=== PATIENT | male | born 1940 | race Caucasian/White ===

== ENCOUNTER 2019-08-07 09:45 | Outpatient (CLI) | payer OTHER, SELFPAY ==
--- NOTE | ~2019-08-07 | PE_ITS ---
EXAMINATION: PET skull to mid thigh DATE: 08/07/2019 11:52 INDICATION: Prostate cancer TECHNIQUE: 7.8 mCi of 18-fluorodeoxyglucose (18-FDG) was administered i.v. Low dose computed tomograp hy (CT) images were acquired from the base of the brain to the proximal thighs for attenuation correc tion and anatomic localization. Positron emission tomography (PET) images were acquired after injecti on. Images including fused PET/CT images were reconstructed in axial, coronal, and sagittal planes. A utomatic exposure control is employed as a dose reduction technique. COMPARISON: CT dated 03/05/2019 and PET/CT dated 01/02/2019 FINDINGS: Head/neck: No hypermetabolic activity is identified in the neck. Chest: No thoracic lymphadenopathy. No significant pleural or pericardial effusion. Heart size normal. There are mild emphysematous changes. Evaluation for small pulmonary nodules limited by motion artifact. N o hypermetabolic activity is identified. No focal airspace consolidation. Enlarged central pulmonary arteries, consistent with pulmonary arterial hypertension. Abdomen/pelvis/proximal thighs: The liver, spleen, pancreas, adrenal glands are unremarkable. There is an exophytic 2.1 cm right kate l cyst anteriorly. No hydronephrosis or renal stones. Gallbladder not identified, likely surgically a bsent. There is mild retroperitoneal lymphadenopathy without significant change. No associated hyperm etabolic activity. Tiny fat-containing umbilical hernia. No bowel obstruction. Enlarged prostate glan d. Bones/Soft tissues: There multiple sclerotic lesions of the pelvis, sternum there is a single focus of hypermetabolic act ivity in the right ilium lateral to the sacroiliac joint. As well as the cervical, thoracic and lumba r spine IMPRESSION: 1. Solitary focus of increased FDG uptake in the right ilium lateral to the sacroiliac joint, consist ent with metastatic disease. Multiple additional sclerotic metastases are identified in the spine, pe lvis and sternum without associated FDG uptake, likely treated metastases. 2: No additional sites of hypermetabolic activity are identified in the neck, chest, abdomen or pelvi s. Reviewed, dictated and finalized at location A. IMPRESSION: 1. Solitary focus of increased FDG uptake in the right ilium lateral to the sac roiliac joint, consistent with metastatic disease. Multiple additional scleroti c metastases are identified in the spine, pelvis and sternum without associated FDG uptake, likely treated metastases. 2: No additional sites of hypermetabolic activity are identified in the neck, c hest, abdomen or pelvis.
[2019-08-07 10:07] LABS: Glucose Point of Care 108 (65-105)
== END 2019-08-07 09:46 | disposition home or self-care (01) ==
PROVIDERS: PCP Internal Medicine; Visit Provider Internal Medicine Medical Oncology
DX: C61 Malignant neoplasm of prostate (principal)
CPT/HCPCS: 78815; A9552

== ENCOUNTER 2020-01-11 13:37 | Outpatient (CLI) | payer OTHER, SELFPAY ==
--- NOTE | ~2020-01-11 | CT_ITS ---
EXAMINATION: CT chest abdomen pelvis w con DATE: 01/11/2020 16:14 CDT INDICATION: Prostate cancer. Bone metastases. TECHNIQUE: Computed tomography (CT) of the chest, abdomen, and pelvis was performed with 100 cc Omnip aque 350 intravenous contrast. The dose-length product was 997.74 mGy-cm. Automated exposure control and iterative reconstruction technique were employed. COMPARISON: Pet/CT dated 08/07/[address] dated 03/05/2019 FINDINGS: CHEST CT: Improvement of mediastinal lymphadenopathy. No significant pleural or pericardial effusion. Heart siz e normal. There is atherosclerosis of the aorta and coronary arteries. Stable 3 mm nodule right upper lobe, coronal image 40. There is a 4 mm perifissural nodule left upper lobe without change. ABDOMEN/PELVIS CT: The liver, spleen, pancreas, adrenal glands and kidneys are unremarkable. There is bladder wall thick ening with multiple bladder diverticula. Enlarged prostate gland. Exophytic right renal cyst. No sign ificant lymphadenopathy. There are multiple scattered sclerotic lesions throughout the visualized oss eous structures with progression of sclerosis in T12. IMPRESSION: 1. Progression of sclerosis in T12, compatible with metastatic disease. Numerable sclerotic lesions a re present throughout the remainder of the visualized osseous structures, compatible with treated met astases. 2: Enlarged prostate gland. Diffuse irregular bladder wall thickening with multiple diverticula, unc hanged. Reviewed, dictated and finalized at location A. IMPRESSION: 1. Progression of sclerosis in T12, compatible with metastatic disease. Numerab le sclerotic lesions are present throughout the remainder of the visualized oss eous structures, compatible with treated metastases. 2: Enlarged prostate gland. Diffuse irregular bladder wall thickening with mul tiple diverticula, unchanged.
== END 2020-01-11 13:38 | disposition home or self-care (01) ==
PROVIDERS: PCP Internal Medicine; Visit Provider Internal Medicine Medical Oncology
DX: C61 Malignant neoplasm of prostate (principal); R07.9 Chest pain, unspecified
CPT/HCPCS: 71260; 74177; Q9967

== ENCOUNTER 2020-03-12 13:51 | Outpatient (CLI) | payer OTHER, SELFPAY ==
--- NOTE | ~2020-03-12 | XR_ITS ---
XR ribs RT 2V w CXR 2V DATE: 03/12/2020 14:15 INDICATION: Right lower rib pain for one month. No injury. History of prostate cancer. TECHNIQUE: PA and lateral chest. 3 views of the right ribs. COMPARISON: 01/11/2020 CT chest abdomen pelvis FINDINGS: Extensive atherosclerotic metastatic disease is better demonstrated on 01/11/2020 CT chest a bdomen pelvis examination. No right rib fracture is evident. Osteosclerotic lesions of the thoracic spine are noted, best demonstrated at T4 and T12, but better d emonstrated by far on the 01/11/2020 CT examination. Normal heart size. No hilar or mediastinal enlargement. Aortic calcification. No pulmonary infiltrate or consolidation, pleural effusion or pulmonary vascular congestion or pneumo thorax is detected. IMPRESSION: Extensive prostate osteosclerotic metastatic disease Reviewed, dictated and finalized at location A.
== END 2020-03-12 13:52 | disposition home or self-care (01) ==
PROVIDERS: PCP Internal Medicine; Visit Provider Internal Medicine Medical Oncology
DX: R07.81 Pleurodynia (principal); R91.8 Other nonspecific abnormal finding of lung field
CPT/HCPCS: 71046; 71100

== ENCOUNTER 2020-07-21 07:43 | Outpatient (CLI) | payer OTHER, SELFPAY ==
--- NOTE | ~2020-07-21 | CT_ITS ---
EXAMINATION: CT soft tissue neck w con DATE: 07/21/2020 08:26 INDICATION: Left neck lymphadenopathy. Prostate cancer. TECHNIQUE: Computed tomography (CT) of the neck was performed with 75 mL Omnipaque-350 intravenous co ntrast. Automated exposure control and iterative reconstruction technique were employed. The dose-buck gth product was 542.81 mGy-cm. COMPARISON: CT chest, abdomen, and pelvis 01/11/2020, PET CT 08/03/2019, neck CT 08/04/2018 FINDINGS: There is mild emphysema. There is a 3 mm nodule in right lung upper lobe, likely benign. Th ere are no pathologically enlarged lymph nodes. There is a stable 1.8 cm nodule in right thyroid lobe with benign biopsy results from 08/21/18. There is plaque in the proximal internal carotid arteries wi th less than 50% stenosis relative to normal distal artery lumen diameters. There is mild mucosal thi ckening in the paranasal sinuses. There is a right mastoid effusion. There is a left otomastoid effus ion. There is severe cervical spondylosis. There are numerous scattered sclerotic lesions of bone, co nsistent with metastatic disease. IMPRESSION: 1. No cervical lymphadenopathy. 2. Sclerotic lesions of bone with worsening from 01/11/20, consistent with metastatic disease. Reviewed, dictated and finalized at location A. [employer] IMPRESSION: 1. No cervical lymphadenopathy. 2. Sclerotic lesions of bone with worsening from 01/11/20, consistent with metas tatic disease.
[2020-07-21 08:19] LABS: Estimated Glomerular Filt Rate > 60
== END 2020-07-21 07:44 | disposition home or self-care (01) ==
LOC: ANHIMG 07:46
PROVIDERS: PCP Internal Medicine; Visit Provider Internal Medicine Medical Oncology
DX: C61 Malignant neoplasm of prostate (principal); R59.1 Generalized enlarged lymph nodes
CPT/HCPCS: 70491; Q9967